=== PATIENT | male | born 1970 | race Hispanic/Latino ===

== ENCOUNTER 2017-05-18 20:21 | Inpatient (IN) | payer OTHER ==
[~2017-05-18] VITALS: Ht 175.3 cm; Wt 103.5 kg
[~2017-05-18 20:21] MED LIST: PHENDIMETRAZIN105 MG PO
[2017-05-18] MEDS ORDERED: LIDOCAINE VISC 2% SOLN 15 ML UDC PO ONE (21:00)
[2017-05-18] MEDS ORDERED: MAGNESIUM/ALUMINUM/SIMETHICONE 30 ML UDC PO ONE (21:00)
[2017-05-18] MEDS ORDERED: BELLADONNA ALK/PHENOBARBITAL 5 ML UDC PO ONE (21:00)
[2017-05-18 21:27] LABS: BASOPHILS # (AUTO) 0.1 (0.0-0.1); BASOPHILS % 0.5 % (0.0-1.0); EOSINOPHILS # (AUTO) 0.1 (0.0-0.4); EOSINOPHILS % 0.5 % (0.0-6.0); HEMOGLOBIN 17.7 g/dL (14.0-18.0); LYMPHOCYTES # (AUTO) 2.2 (1.0-3.2); MEAN CORPUSCULAR HEMOGLOBIN 29.7 pg (28-32); MEAN CORPUSCULAR HGB CONC 33.4 g/dL (31-35); MEAN CORPUSCULAR VOLUME 88.9 fL (81-99); NEUTROPHILS # (AUTO) 8.7 (2.1-6.9); NEUTROPHILS % 72.7 % (38.7-80.0); PLATELET COUNT 390 x10e3/uL (140-360); RED BLOOD COUNT 5.96 x10e6/uL (4.3-5.7); RED CELL DISTRIBUTION WIDTH 14.4 % (11.7-14.4)
[2017-05-18 21:43] LABS: ALBUMIN 4.3 g/dL (3.5-5.0); ALBUMIN/GLOBULIN RATIO 1.2 (0.8-2.0); CALCIUM 10.7 mg/dL (8.4-10.2); CREATININE, SERUM 1.44 mg/dL (0.72-1.25)
[2017-05-18 21:49] LABS: TROPONIN I 0.026 ng/mL (0-0.300)
[2017-05-18] MEDS ORDERED: ASPIRIN 81 MG CHEW TAB PO STA (22:03)
[2017-05-18] MEDS ORDERED: ENOXAPARIN SODIUM INJ 100 MG/ML SYR SC STA (22:03)
--- NOTE | 2017-05-18 22:36 | Diagnostic Imaging Report ---
CHEST SINGLE (PORTABLE), 05/18/2017 8:49 PM Technique: CHEST SINGLE (PORTABLE) Comparison: None available. Clinical history: Heartburn, except Findings: See Impression Impression: Limited by portable technique and motion artifact. If there is ongoing clinical concern, recommend repeat or upright PA and lateral. 1. Cardiomediastinal silhouette grossly normal for technique 2. No consolidation, pleural effusion or pneumothorax. Signed by: Dr Lara Orellana MD on 05/18/2017 10:33 PM
[2017-05-18] MEDS ORDERED: PANTOPRAZOLE 40 MG 10ML VIAL IV STA (22:41)
[2017-05-18] MEDS ORDERED: SODIUM CHLORIDE FLUSH 10 ML SYR INJ PRN (22:45)
[2017-05-18] MEDS ORDERED: HYDRALAZINE HCL 20 MG/ML VIAL IV PRN (22:45)
[2017-05-18] MEDS ORDERED: ONDANSETRON HCL INJ 2 MG/ML VIAL IV PRN (22:45)
[2017-05-19] VITALS (8 sets, daily range): BP systolic 119–147; BP diastolic 72–97
[2017-05-19] MEDS: SODIUM CHLORIDE 0.9% 1000ML 1,000 ML IV SCH ×4 (00:24→21:58)
[2017-05-19 06:34] LABS: CHOL/HDL RATIO 7.6 (3.9-4.7)
[2017-05-19 06:46] LABS: CREATINE KINASE MB 4.7 ng/mL (0.00-5.00); TROPONIN I 0.009 ng/mL (0-0.300)
[2017-05-19 08:56] LABS: ANION GAP 13.9 mmol/L (8-16); CALCIUM 8.7 mg/dL (8.4-10.2); CREATININE, SERUM 1.41 mg/dL (0.72-1.25); POTASSIUM 3.9 mmol/L (3.5-5.1)
[2017-05-19] MEDS: METOPROLOL TARTRATE 25 MG TAB PO SCH ×2 (09:40→17:42)
[2017-05-19] MEDS: PANTOPRAZOLE 40 MG 10ML VIAL IV SCH (10:26)
[2017-05-19] MEDS: ASPIRIN 81 MG ENTERIC COATED PO SCH (10:26)
--- NOTE | 2017-05-19 14:32 | History and Physical ---
CHIEF COMPLAINT 1. Chest pain. 2. Epigastric pain. 3. Not feeling good. HPI: This is a 47-year-old male with a past medical history of hypertension, hyperlipidemia recently started on Norvasc. He started to develop some epigastric pain, nausea, atypical chest pain. Patient came to the emergency room. No cough. No shortness of breath. No fever. No abdominal pain. Has some epigastric pain, but no nausea or vomiting. No diarrhea. ALLERGIES: NO KNOWN DRUG ALLERGIES. PAST MEDICAL HISTORY 1. Hypertension. 2. Hyperlipidemia. PAST SURGICAL HISTORY: Not available. HABITS: Denies smoking. Denies alcohol use. SOCIAL HISTORY: Patient is . MEDICATIONS: Norvasc 5 mg daily. REVIEW OF SYSTEMS GENERAL: Weakness. HEENT: No . No blurry vision. CARDIAC: Has some chest pain. No shortness of breath. No cough. ALIMENTARY: Has some nausea, abdominal pain. No fever. No diarrhea. GENITOURINARY: No dysuria or hematuria. MUSCULOSKELETAL: No joint pain. NEUROLOGICAL: No focal weakness. PHYSICAL EXAMINATION GENERAL: This is a 47-year-old male who is alert, and does not seem in acute distress. VITALS: Temperature 98, pulse 76, respiratory rate 18, blood pressure 147/87. HEENT: Within normal limits. LUNGS: Clear to auscultation bilaterally. Good breath sounds. HEART: S1 and S2. Regular rate and rhythm. No gallops or murmurs. ABDOMEN: Soft and nontender. Has some epigastric tenderness, but otherwise no other tenderness. No guarding or rigidity. EXTREMITIES: No edema. Peripheral pulses normal. 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 EKG nonspecific ST-T changes. Chest x-ray limited study and normal. White count 11.97, hemoglobin and hematocrit 17.7 and 43, and platelets 390,000. Sodium 142, potassium 4, BUN 17, creatinine 1.41. CK 12.92, troponin normal. ASSESSMENT 1. Atypical chest pain: Rule out angina. Rule out myocardial infarction. 2. Hyperlipidemia. 3. Hypertension. 4. Rhabdomyolysis. 5. Gastritis. PLAN: Change Norvasc to metoprolol. IV normal saline at 130 mL per hour. Cardiac consult with Dr. Chen. Metoprolol 12.5 mg p.o. b.i.d. Echocardiogram. Further care as per cardiology recommendations. Job#: [id number] RI
[2017-05-19 15:10] LABS: CREATINE KINASE MB 3.3 ng/mL (0.00-5.00); TROPONIN I 0.012 ng/mL (0-0.300)
--- NOTE | 2017-05-19 15:23 | Consultation ---
DATE OF CONSULTATION: May 19, 2017 CARDIOLOGY CONSULTATION REASON FOR CONSULTATION: Chest pain. HISTORY OF PRESENT ILLNESS: This is a 47-year-old man with a history of hypertension, who presents with complaints of heartburn. He reports he had nosebleed on Wednesday for which went to the ER. He was found to have an abnormal EKG, which he is uncertain and he has had before in the past. He then saw his primary care physician who put him on amlodipine. After he took amlodipine, he developed heartburn and hiccups, and he developed chest pain, which he described as heartburn sensation. He therefore presented to the ER for further evaluation. He denies any edema, orthopnea, PND, palpitations, lightheadedness, or syncope. He reports he had a normal stress test about 1-1/2 years ago. However, he does not recall being told he had an abnormal EKG at that time. REVIEW OF SYSTEMS: Negative except as per HPI. PAST MEDICAL HISTORY: Hypertension, hyperlipidemia. PAST SURGICAL HISTORY: Nose surgery, hand surgery times 2. ALLERGIES: NO KNOWN DRUG ALLERGIES. MEDICATIONS: Please see medication list. SOCIAL HISTORY: He smokes tobacco occasionally. He drinks alcohol socially. No illicit drugs. FAMILY HISTORY: Denies. PHYSICAL EXAMINATION VITALS: Temperature 98 degrees, pulse 76, respiratory rate 18, blood pressure 147/87, and oxygen saturation 98% on room air. GENERAL: Obese gentleman in no acute distress. HEENT: Normocephalic and atraumatic. Pupils equal. No scleral icterus. NECK: Supple. No thyromegaly or cervical lymphadenopathy. No carotid bruits. LUNGS: Clear to auscultation bilaterally. No wheezes or crackles. CARDIOVASCULAR: Normal rate and regular rhythm. No murmur. Normal S1 and S2. ABDOMEN: Soft and nontender. EXTREMITIES: No edema. NEURO: Nonfocal exam. LABS: WBC 11.97, hemoglobin 17.7, hematocrit 53, and platelets 390,000. Sodium 142, potassium 3.9, chloride 106, CO2 26, BUN 17, creatinine 1.41. Troponin 0.009. EKG is sinus rhythm, right bundle branch block. Chest x-ray with cardiomediastinal silhouette grossly normal for technique. No consolidation, pleural effusion or pneumothorax. IMPRESSION 1. Chest pain. 2. Hypertension. 3. Hyperlipidemia. 4. Acute kidney injury versus chronic kidney disease. 5. Rhabdomyolysis. RECOMMENDATIONS: Trend cardiac enzymes. No evidence of myocardial infarction on serial cardiac biomarkers thus far. Given abnormal EKG and risk factors, we will proceed with treadmill nuclear stress test for further evaluation. Echocardiogram to evaluate for structural heart disease. Continue current cardiac medications. Further recommendations pending test results. Thank you for this consult. We will continue to follow. Job#: [id number] SHAYLEE
--- NOTE | 2017-05-19 21:01 | Cardiology Report ---
DATE OF STUDY: May 19, 2017 PROCEDURE TITLE Rest stress single isotope SPECT imaging with exercise stress and gated SPECT imaging. INDICATIONS: Abnormal EKG and chest pain. PROCEDURE: The patient performed treadmill exercise using a Fernando protocol, exercising for 8 minutes 6 seconds to stage 3 and completing estimated work load of 10.1 metabolic equivalents (METS). The test was terminated due to fatigue. The heart rate was 90 beats per minute at baseline and increased to 132 beats per minute at peak exercise, which was 77% of maximum predicted heart rate. The rest blood pressure was 73/59 and increased to 154/76 mmHg, which is a normal response. The patient did not develop any symptoms other than fatigue during the procedure. The resting electrocardiogram showed normal sinus rhythm with right bundle branch block. There were no ST segment changes consistent with myocardial ischemia. Myocardial perfusion imaging was performed at rest following the injection of 10.9 mCi of tetrofosmin. At peak exercise the patient was injected with 33 mCi of tetrofosmin and exercise was continued for 1 minute. Gated post tomographic imaging was performed. FINDINGS: The overall quality of the study is fair. Attenuation artifact is present. There is a medium-sized mild perfusion defect in the inferior wall on stress imaging. Images revealed homogenous tracer distribution at rest. Gated SPECT imaging reveals normal myocardial thickening and wall motion. Left ventricular ejection fraction was calculated to be greater than 70%. IMPRESSION: Normal clinical, hemodynamic, and ECG exercise stress test. Myocardial perfusion imaging is abnormal. There is a moderate area of ischemia in the inferior wall. Overall, left ventricular systolic function was normal without regional wall motion abnormalities. Job#: [id number] cc: DARLINE NAIR MD MTDD
[2017-05-19] MEDS ORDERED: MAGNESIUM/ALUMINUM/SIMETHICONE 30 ML UDC PO PRN (22:30)
[2017-05-20] VITALS (8 sets, daily range): BP systolic 128–151; BP diastolic 62–92
[2017-05-20] MEDS: SODIUM CHLORIDE 0.9% 1000ML 1,000 ML IV SCH ×2 (03:51→20:36)
[2017-05-20] MEDS: METOPROLOL TARTRATE 25 MG TAB PO SCH ×2 (08:00→17:26)
[2017-05-20] MEDS: ASPIRIN 81 MG ENTERIC COATED PO SCH (08:26)
[2017-05-20] MEDS: PANTOPRAZOLE 40 MG 10ML VIAL IV SCH (08:26)
[2017-05-20] MEDS ORDERED: VERAPAMIL HCL 2.5 MG/ML 2 ML VIAL ONE (12:14)
[2017-05-20] MEDS ORDERED: LIDOCAINE HCL 2% LOCAL 20 ML VIAL ONE (12:14)
[2017-05-20] MEDS ORDERED: IOPAMIDOL 370 MG/ML 200 ML INFUS..BTL INJ ONE (12:15)
[2017-05-20] MEDS ORDERED: HEPARIN SOD/SOD CHLORIDE 2,000 ML ONE (12:15)
[2017-05-20] MEDS ORDERED: NITROGLYCERIN/D5W 200 MCG/ML 250 ML ONE (12:17)
[2017-05-20] MEDS ORDERED: SODIUM CHLORIDE 0.9% 1000ML 1,000 ML ONE (12:17)
[2017-05-20] MEDS ORDERED: FENTANYL CITRATE/PF 100MCG/2 ML INJ ONE (12:58)
[2017-05-20] MEDS ORDERED: MIDAZOLAM HCL 2 MG/2 ML VIAL ONE (12:59)
[2017-05-20 13:37] LABS: BASOPHILS % 0.5 % (0.0-1.0); EOSINOPHILS # (AUTO) 0.2 (0.0-0.4); EOSINOPHILS % 1.9 % (0.0-6.0); LYMPHOCYTES # (AUTO) 1.9 (1.0-3.2); MEAN CORPUSCULAR HEMOGLOBIN 29.8 pg (28-32); MEAN CORPUSCULAR HGB CONC 32.7 g/dL (31-35); MEAN CORPUSCULAR VOLUME 91.2 fL (81-99); MONOCYTES # (AUTO) 0.6 (0.2-0.8); NEUTROPHILS # (AUTO) 5.6 (2.1-6.9); NEUTROPHILS % 67.2 % (38.7-80.0); PLATELET COUNT 325 x10e3/uL (140-360); RED BLOOD COUNT 5.37 x10e6/uL (4.3-5.7); RED CELL DISTRIBUTION WIDTH 14.1 % (11.7-14.4)
[2017-05-20 13:51] LABS: ALBUMIN 3.3 g/dL (3.5-5.0); ALBUMIN/GLOBULIN RATIO 1.1 (0.8-2.0); ANION GAP 11.2 mmol/L (8-16); CALCIUM 8.2 mg/dL (8.4-10.2); CREATININE, SERUM 1.42 mg/dL (0.72-1.25); POTASSIUM 4.2 mmol/L (3.5-5.1)
--- NOTE | 2017-05-20 14:52 | Progress Note ---
DATE: May 20, 2017 CARDIOLOGY PROGRESS NOTE SUBJECTIVE: The patient denies chest pain or shortness of breath. He underwent coronary angiogram today due to an abnormal nuclear stress test that showed evidence of mild coronary artery disease. OBJECTIVE VITAL SIGNS: Temperature 97.1 degrees, pulse 74, respiratory rate 17, blood pressure 151/92, oxygen saturation 98% on room air. GENERAL: Awake, alert, in no acute distress. LUNGS: Clear to auscultation bilaterally. No wheezes or crackles. CARDIOVASCULAR: Normal rate, regular rhythm. No murmur. Normal S1 and S2. ABDOMEN: Soft, nontender. EXTREMITIES: No edema. CARDIAC MEDICATIONS 1. Aspirin 81 mg p.o. daily. 2. Metoprolol tartrate 12.5 mg p.o. b.i.d. LABS: WBC 8.3, hemoglobin 16, hematocrit 49, platelets 325. Sodium 138, potassium 4.2, chloride 104, CO2 27, BUN 10, creatinine 1.42. TELEMETRY: Normal sinus rhythm. IMPRESSION 1. Chest pain, abnormal nuclear stress test. 2. Hypertension. 3. Hyperlipidemia. 4. Acute kidney injury versus chronic kidney disease. 5. Rhabdomyolysis, improving. RECOMMENDATIONS: CK is improving. There is no evidence of myocardial infarction on serial cardiac biomarkers. Given his abnormal nuclear stress test, we proceeded with coronary angiogram today which revealed only mild coronary artery disease. Discussed lifestyle modification, a heart-healthy diet, weight loss and exercise with the patient. Patient may be discharged home after his bed rest is complete. Thank you for this consult. We will continue to follow. Job#: [id number] EV
--- NOTE | 2017-05-20 21:03 | Consultation ---
DATE OF CONSULTATION: May 20, 2017 HISTORY OF PRESENT ILLNESS: This is a 47-year-old who has a history of supposedly acid reflux and history of ulcer disease in the past, history of hypertension and hyperlipidemia, presented to the hospital because of problems of abdominal pain as well as pain in the left upper quadrant area along with some chest tightness and heartburn. Patient has some nausea, but denies any vomiting. His cardiac workup is unremarkable and his workup also showed that his liver enzymes slightly elevated of 66 and 64 on admission. It is back to 39 and 54. He said that he had an upper and lower endoscopy about a couple of years or so ago, which showed ulcers supposedly both in the stomach and in the esophagus. He denies any bleeding along with this problem. OTHER MEDICAL PROBLEMS: Significant for history of hypertension, also history of hyperlipidemia. ALLERGIES: NONE. MEDICATIONS AT HOME: Include Norvasc. SOCIAL HISTORY: No smoking or alcohol use. FAMILY HISTORY: Noncontributory. REVIEW OF SYSTEMS: Denies any chest pain or shortness of breath at this point. Denies any dysphagia or odynophagia. Denies any dysuria or hematuria, numbness or tingling of the extremities, or any kind of syncopal episode. PHYSICAL EXAMINATION GENERAL: Patient is awake, alert, appeared to be stable, and not in any acute distress at this point. VITAL SIGNS: Afebrile currently. HEAD, EYES, EARS, NOSE, THROAT: Normocephalic, atraumatic. Sclerae are anicteric. NECK: Supple. HEART: Regular. ABDOMEN: Soft. There is no distention at this point. It is nontender. EXTREMITIES: No clubbing. LAB VALUES: As of today, the AST 39, ALT of 54 and CBC was okay. IMPRESSION 1. Noncardiac chest pain, rule out angina. 2. Abdominal pain, nausea. He has history of ulcer supposedly and reflux. 3. Liver function test appears to be getting better. RECOMMENDATIONS: Continue on current care at this point. Patient will need to have an esophagogastroduodenoscopy as an outpatient. Follow up with me in the office in about 2 to 3 weeks. Job#: [id number] GE cc:TI NAIR MD
[2017-05-21] VITALS: BP 134/73
[2017-05-21] MEDS: SODIUM CHLORIDE 0.9% 1000ML 1,000 ML IV SCH (04:20)
[2017-05-21 05:00] VITALS: BP 144/91
[2017-05-21 07:09] LABS: ANION GAP 10.3 mmol/L (8-16); BLOOD UREA NITROGEN 10 mg/dL (7-26); BUN/CREATININE RATIO 8 (6-25); CALCIUM 8.3 mg/dL (8.4-10.2); CARBON DIOXIDE 29 mmol/L (22-29); CHLORIDE 106 mmol/L (98-107); CREATININE, SERUM 1.25 mg/dL (0.72-1.25); EST GLOMERULAR FILTRATION RATE > 60 ML/MIN (60-); GLUCOSE 89 mg/dL (74-118); POTASSIUM 4.3 mmol/L (3.5-5.1); SODIUM 141 mmol/L (136-145)
[2017-05-21 08:07] VITALS: BP 154/94
[2017-05-21 08:18] VITALS: BP 154/94
[2017-05-21] MEDS ORDERED: TRAMADOL HCL 50 MG TAB PO PRN (08:30)
[2017-05-21] MEDS: PANTOPRAZOLE 40 MG 10ML VIAL IV SCH (08:35)
[2017-05-21] MEDS: ASPIRIN 81 MG ENTERIC COATED PO SCH (08:39)
--- NOTE | 2017-05-21 09:16 | Operative Report ---
DATE OF PROCEDURE: May 20, 2017 INDICATIONS: Coronary artery disease, unstable angina with abnormal stress test. PROCEDURES PERFORMED 1. Left heart catheterization. 2. Selective coronary angiography. 3. Deployment of right groin Perclose. COMPLICATIONS: None. RECOMMENDATIONS: Medical therapy. Access was obtained in the right femoral artery. A 6-Omani sheath was placed. Diagnostic coronary angiography demonstrated patent left main. Left anterior descending, circumflex and right coronary artery had mild 20% to 30% stenosis. No critical occlusions were noted. Excellent flow in all vessels. No intervention was deemed necessary. Right groin repaired using Perclose. Patient was observed in the hospital for hydration for rhabdomyolysis. Job#: [id number] SHAYLEE
--- NOTE | 2017-05-21 09:30 | Diagnostic Imaging Report ---
PROCEDURE:X-RAY RIGHT ELBOW, COMPLETE COMPARISON:None. INDICATIONS:ELBOW PAIN FINDINGS: There are no fractures, dislocations, lytic or blastic lesions. The bones are well-mineralized. The soft-tissues are unremarkable. CONCLUSION: No acute radiographic abnormality. Dictated by: Leonidas Snow M.D. on 05/21/2017 at 9:39 Electronically approved by: Leonidas Snow M.D. on 05/21/2017 at 9:39
[2017-05-21] MEDS ORDERED: METOPROLOL TARTRATE 25 MG TAB PO SCH (17:00)
== END 2017-05-21 10:55 | disposition home or self-care (01) | DRG 287 ==
LOC: ER 20:21 → IMCU 23:59 → OBSVTOIN 05-20 15:48
PROVIDERS: ADMIT Internal Medicine; ATTEND Internal Medicine
PROC: 4A023N7 Measurement of Cardiac Sampling and Pressure, Left Heart, Percutaneous Approach (ICD-10-PCS; principal; 2017-05-20)
PROC: B2111ZZ Fluoroscopy of Multiple Coronary Arteries using Low Osmolar Contrast (ICD-10-PCS; principal; 2017-05-20)
DX: I25.110 Atherosclerotic heart disease of native coronary artery with unstable angina pectoris (principal); N17.9 Acute kidney failure, unspecified; M62.82 Rhabdomyolysis; E78.5 Hyperlipidemia, unspecified; K21.9 Gastro-esophageal reflux disease without esophagitis; K29.70 Gastritis, unspecified, without bleeding; G47.33 Obstructive sleep apnea (adult) (pediatric); Z72.0 Tobacco use; E66.9 Obesity, unspecified; Z68.33 Body mass index [BMI] 33.0-33.9, adult
CPT/HCPCS: 36140; 36415; 71010; 77002; 78452; 80048; 80053; 80061; 82150; 82550; 82553; 83690; 84484; 85025; 93017; 93306; 93458; 93971; 99284; A9502; C1769; G0378; J1650; J2001; J2250; J7030; Q9967

== ENCOUNTER 2017-07-25 08:10 | Emergency (ER) | payer OTHER ==
[~2017-07-25] VITALS: Ht 175.3 cm; Wt 102.1 kg
--- OUTSIDE RECORDS SUMMARY | 2017-07-25 08:14 | XMS REPORT ---
Author [facility] Address Unknown Phone Unavailable Care Team Providers Care Diet Consultant Name Role Phone TI NAIR Unavailable Unavailable Problems This patient has no known problems. Allergies, Adverse Reactions, Alerts This patient has no known allergies or adverse reactions. Medications This patient has no known medications. Results Test Description Test Time Test Comments Text Results Atomic Results Result Comments ELBOW RIGHT COMPLETE [place] [address] Patient Name: LAMBERTO WILKINS JR MR #: [id number] : 1970 Age/Sex: 47/M Req #: [id number] [facility] Physician: TI NAIR MD Ordered by : TI NAIR MD Report #: [id number] Location: [facility] Room/Bed: [place] [address] Procedure: [id number] DX/ELBOW RIGHT COMPLETE Exam Date: Exam Time: REPORT STATUS: Signed PROCEDURE: X-RAY RIGHT ELBOW, COMPLETE COMPARISON: None. INDICATIONS: ELBOW PAIN FINDINGS: There are no fractures, dislocations, lytic or blastic lesions. The bones are well-mineralized. The soft-tissues are unremarkable. CONCLUSION: No acute radiographic abnormality. Dictated by: Pavithra Elias M.D. on 05/21/2017 at 9:39 Electronically approved by: Pavithra Elias M.D. on 05/21/2017 at 9:39 Dictated By: PAVITHRA ELIAS MD 8 COPY TO: TI NAIR MD Stress Test - Treadmill ONLY [facility] [address] [place] [address] Patient Name : LAMBERTO WILKINS JR MR #: [id number] : 1970 Age/Sex : 47/M Adm Physician : TI NAIR MD Admit Date : 05/20/17 Location : [facility] Room/Bed : [place] [address] REPORT: Cardiology Report DATE OF STUDY: May 19, 2017 PROCEDURE TITLE Rest stress single isotope SPECT imaging with exercise stress and gated SPECT imaging. INDICATIONS: Abnormal EKG and chest pain. PROCEDURE: The patient performed treadmill exercise using a Fernando protocol, exercising for 8 minutes 6 seconds to stage 3 and completing estimated work load of 10.1 metabolic equivalents (METS). The test was terminated due to fatigue. The heart rate was 90 beats per minute at baseline and increased to 132 beats per minute at peak exercise, which was 77% of maximum predicted heart rate. The rest blood pressure was 73 /59 and increased to 154/76 mmHg, which is a normal response. The patient did not develop any symptoms other than fatigue during the procedure. The resting electrocardiogram showed normal sinus rhythm with right bundle branch block. There were no ST segment changes consistent with myocardial ischemia. Myocardial perfusion imaging was performed at rest following the injection of 10.9 mCi of tetrofosmin. At peak exercise the patient was injected with 33 mCi of tetrofosmin and exercise was continued for 1 minute. Gated post tomographic imaging was performed. FINDINGS: The overall quality of the study is fair. Attenuation artifact is present. There is a medium-sized mild perfusion defect in the inferior wall on stress imaging. Images revealed homogenous tracer distribution at rest. Gated SPECT imaging reveals normal myocardial thickening and wall motion. Left ventricular ejection fraction was calculated to be greater than 70%. IMPRESSION: Normal clinical, hemodynamic, and ECG exercise stress test. Myocardial perfusion imaging is abnormal. There is a moderate area of ischemia in the inferior wall. Overall, left ventricular systolic function was normal without regional wall motion abnormalities. DT: 05/19 20:38 Job#: [id number] cc: DARLINE NAIR MD Signature Date Dictated By: EVERARDO GONSALEZ MD Transcribed By: SMEDS on 05/19/17 <Electronically signed by EVERARDO GONSALEZ MD><<Signature on File>>05/27/17 1710 COPY TO: CHEST SINGLE (PORTABLE) [place] [address] Patient Name: LAMBERTO WILKINS JR MR #: [id number] : 1970 Age/Sex: 47/M Req #: [id number] Adm Physician: Ordered by: JAYLAN BROWN MAST MAKER Report #: [id number] Location: ER Room/Bed: Procedure: [id number] DX/CHEST SINGLE (PORTABLE) Exam Date: 05/18/17 Exam Time: 2129 REPORT STATUS: Signed CHEST SINGLE ( PORTABLE), 05/18/2017 8:49 PM Technique: CHEST SINGLE (PORTABLE) Comparison: None available. Clinical history: Heartburn, except Findings : See Impression Impression: Limited by portable technique and motion artifact. If there is ongoing clinical concern, recommend repeat or upright PA and lateral. 1. Cardiomediastinal silhouette grossly normal for technique 2. No consolidation, pleural effusion or pneumothorax. Signed by: Dr Sandra Orellana MD on 05/18/2017 10:33 PM Dictated By: SANDRA ORELLANA MD 32 Transcribed By: TORI on 05/18/172232 COPY TO: JAYLAN BROWN NP
[2017-07-25] MEDS ORDERED: SILVER SULFADIAZINE 50GM CREAM TOP STA (08:54)
[2017-07-25] MEDS ORDERED: HYDROCODONE/APAP 10MG-325MG TAB PO ONE (09:00)
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
[2017-07-25 09:49] VITALS: BP 160/109
== END 2017-07-25 09:55 | disposition home or self-care (01) ==
LOC: ER 08:49
DX: S50.811A Abrasion of right forearm, initial encounter (principal); S30.0XXA Contusion of lower back and pelvis, initial encounter; V22.4XXA Motorcycle driver injured in collision with two- or three-wheeled motor vehicle in traffic accident, initial encounter; Y92.488 Other paved roadways as the place of occurrence of the external cause; I10 Essential (primary) hypertension
CPT/HCPCS: 72170; 99283

== ENCOUNTER 2019-07-16 11:28 | Emergency (ER) | payer OTHER ==
[~2019-07-16] VITALS: Ht 175.3 cm; Wt 102.1 kg
--- OUTSIDE RECORDS SUMMARY | 2019-07-16 11:30 | XMS REPORT | Summary of Care ---
Author Author [facility] Organization [facility] Address Unknown Phone Unavailable Care Team Providers Care Clerical Order Filler Name Role Phone PCP Unavailable Reason for Visit * Reason Comments Hypogonadism Encounter Details Care Team Description Date Type Department Lewis Craft MD [address] [facility] [address] [place] [address] Hypogonadism 03/03/2019 Office Visit [facility] Urology [address] [facility], [facility] [address] [place] [address] Allergies No Known Allergiesdocumented as of this encounter (statuses as of 03/03/2019) Medications End Date Status Medication Sig Dispensed Refills Start Date Active Cetirizine HCl (ZYRTEC Take by 0 OR) mouth. Active tadalafil (CIALIS) 20 MG Take 1 Tab by 6 Tab 5 tablet mouth as 8 needed for Erectile Dysfunction. Active testosterone enanthate INJECT 1 ML 15 mL 0 (DELATESTRYL) 200 MG/ML INTRAMUSCULAR 8 injection LY EVERY 7 DAYS Active finasteride (PROPECIA) 1 Take 1 Tab by 90 Tab 1 MG tablet mouth daily. 9 Active ketoconazole (NIZORAL) 2 Apply small 3 Bottle 2 % shampoo amount 9 topically daily as needed Active finasteride (PROSCAR) 5 TAKE 1/4 OF A 30 Tab 1 MG tablet TABLET BY 9 MOUTH ONCE A DAY Active DEXILANT 60 MG CPDR TAKE 1 3 CAPSULE BY 9 MOUTH EVERY DAY Active CHORIONIC GONADOTROPIN IM Inject into 0 the muscle. Active Metoprolol-hydroCHLOROthi Take by 0 azide (METOPROLOL-HCTZ ER mouth. OR) Active finasteride (PROSCAR) 5 TAKE 1/4 OF A 30 Tab 2 201 MG tablet TABLET BY 9 MOUTH ONCE A DAY Active anastrozole (ARIMIDEX) 1 TAKE 1 TABLET 24 Tab 2 201 MG tablet BY MOUTH 9 EVERY 7 DAYS 03/03/2019 Discontinued anastrozole (ARIMIDEX) 1 TAKE 1 TABLET 12 Tab 0 08/17/201 MG tablet BY MOUTH 9 EVERY 7 DAYS documented as of this encounter (statuses as of 03/03/2019) Active Problems Problem Noted Date CHF (congestive heart failure) (HCCode) Gout HTN (hypertension) Hypogonadism in male documented as of this encounter (statuses as of 03/03/2019) Social History Date Tobacco Use Types Packs/Day Years Used Never Smoker Smokeless Tobacco: Never Used Drinks/Week oz/Week Comments Alcohol Use No Sex Assigned at Date Recorded Not on file Industry Job Start Date Occupation Not on file Not on file Not on file Travel End Travel History Travel Start No recent travel history available. documented as of this encounter Last Filed Vital Signs Reading Time Taken Comments Vital Sign 150/84 03/03/2019 9:52 AM PRESS READER Blood Pressure 81 03/03/2019 9:52 AM PR[employer] READER Pulse - - Temperature - - Respiratory Rate - - Oxygen Saturation - - Inhaled Oxygen Concentration 104.3 kg (230 lb) 03/03/2019 9:52 AM PRESS READER Weight 175.3 cm (5' 9") 03/03/2019 9:52 AM PRESS READER Height 33.97 03/03/2019 9:52 AM PRESS READER Body Mass Index documented in this encounter Progress Notes * Lewis Craft MD - 03/03/2019 9:20 AM PRESS READER I saw and evaluated the patient and agree with the resident's/fellow's findings as written. 49 y.o. male patient complains of moderate symptoms consistent with hypogonad ism on TTH since 10/2016. 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 Pt denies gynecomastia, nipple sensitivity, mild acne, hair loss, joint pain, te sticular atrophy. H/o nephrolithiasis -No stone episodes since his last appointment -does not seem to be recurrent issue Denies LUTS, ED. No hx of sock lining examiner in family. 09/24/18 labs: T chol 177, HDL 31, LDL 131 Hct 47.2 OGF1 126 Prolactin 11.7 Estradiol 51 (nl <39) PSA 1.9 Total T 1090 Free T 243.1 M-HypoG S READER * Marty Luke MD - 03/03/2019 9:20 AM PRESS READER Last seen 07/2018 Hypogonadism: -TE 1 cc IM QW -HCG 1500 IU SQ QW -Deca 0.5 cc IM QW - Finasteride 1mg daily prescribed to pharmacy -Still needs a second sleep study to confirm dx of CHERELLE H/o nephrolithiasis -No stone episodes since his last appointment Gets labs from [facility] Chief Complaint Patient presents with Hypogonadism HPI: 49 y.o. male patient complains of moderate symptoms consistent with hypogo nadism on TTH since 10/2016. 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 Pt denies gynecomastia, nipple sensitivity, mild acne, hair loss, joint pain, te sticular atrophy. H/o nephrolithiasis -No stone episodes since his last appointment -does not seem to be recurrent issue Denies LUTS, ED. No hx of sock lining examiner in family. 09/24/18 labs: T chol 177, HDL 31, LDL 131 Hct 47.2 OGF1 126 Prolactin 11.7 Estradiol 51 (nl <39) PSA 1.9 Total T 1090 Free T 243.1 Prostate cancer screening Lab Results Component Value Date PSA 1.748 07/23/2017 PSA 2.008 03/03/2017 PSA 1.432 11/04/2016 PSA 0.30 (08/11/2018) - with 7 children, not interested in preserving fertility. - History of uric acid stones 6 years ago- passed a few stones then. None since. No issues with. - - no history of gynecomastia and/or concerns about the condition. - no Family History of Prostate Cancer. No past medical history on file. No past surgical history on file. Medications: No current outpatient prescriptions on file. No outpatient prescriptions prior to visit. No facility-administered medications prior to visit. Social History Marital Status: Single Spouse Name: Years of Education: Number of children: Social History Main Topics Social History Occupational History Not on file. family history is not on file. Allergies not on file Review of Systems: GENERAL: Denies recent weight changes, fever, weakness, fatigue, headaches INTEGUMENTARY: Denies rashes, eruptions, dryness, jaundice, changes in skin, hair, or nails, di scoloration of skin. EYES: Denies blurred vision, double vision, pain EARS, NOSE, MOUTH AND THROAT: Denies soreness and/or redness of gums, hoarseness, difficulty in swallowing, he ad colds, discharges, obstruction, postnasal drip, sinus pain, earaches. MUSCULOSKELATAL: Denies joint pain, neck pain, back pain RESPIRATORY: Denies chest pain, wheezing, cough, difficulty breathing, asthma, bronchitis, pn eumonia, tuberculosis, shortness of breath, emphysema NEUROLOGIC: Denies fainting, blackouts, seizures, paralysis, tingling, tremors, memory loss, dizzy spells, stroke CARDIOVASCULAR: Denies chest pain, rheumatic fever, rapid heart beat, high blood pressure, swell ing, dizziness, faintness, varicose veins, heart valve problems. ENDOCRINE: Denies thyroid trouble, fatigue, heat and cold intolerance, excessive sweating, thirst, hunger GASTROINTESTINAL: Denies nausea, vomiting, diarrhea, constipation, indigestion, food intolerance, hemorrhoids, jaundice, heartburn, diabetes, hepatitis GENITOURINARY: As per HPI HEMATOLOGIC/LYMPHATIC: Denies anemia, easy bruising or bleeding, past transfusion, swollen glands, bloo d clotting problems PSYCHOLOGIC: Denies nervousness, mood swings, insomnia, headaches, nightmares, depression ALLERGY/IMMUNOLOGIC: Denies food allergies, plant allergies, environmental allergies OTHER: Denies HIV/AIDS Physical Exam: There were no vitals filed for this visit. GENERAL: Well developed, well nourished, in no acute distress HEAD: Normocephalic and atraumatic CHEST Regular respiratory rate CV Regular rate and rhythm ABDOMEN: Abdomen soft and non-tender without masses, BACK: No CVAT EXTREMITIES: No clubbing, cyanosis, edema, or deformity SKIN: Intact without lesions or rashes NEURO: VALLADARES well. Patient alert and oriented x3. PSYCH: Alert and cooperative; normal mood and affect; normal attention span and con centration Most Recent Labs: No results found for this or any previous visit (from the past 4032 hour(s)). Most Recent Imaging: No images are attached to the encounter. No diagnosis found. Plan: Hypogonadism: -TE 1 cc IM QW -HCG 1500 IU SQ QW -Deca 0.5 cc IM QW Weight management - [facility] ED -- Tadalafil 25 -Still needs a second sleep study to confirm dx of CHERELLE H/o nephrolithiasis -No stone episodes since his last appointment Gets labs from [facility] Counseled again on BP management -- will see concrete pouring supervisor S READER documented in this encounter Plan of Treatment Care Team Description Date Type Specialty Lewis Craft MD [address] [place] [address] 09/08/2019 Office Visit Urology Order Schedule Name Type Priority Associated Diagnoses Expected: 03/17/2019 (Approximate), Expires: 04/02/2019 TESTOSTERONE-TOTAL(URO Lab Routine Hypogonadism in male DEPT) Encounter for screening for cardiovascular disorders Screening for metabolic disorder Encounter for long-term current use of medication Expected: 03/17/2019 (Approximate), Expires: 04/02/2019 ESTRADIOL(URO DEPT) Lab Routine Hypogonadism in male Encounter for screening for cardiovascular disorders Screening for metabolic disorder Encounter for long-term current use of medication Expected: 03/17/2019 (Approximate), Expires: 04/02/2019 PROLACTIN(URO DEPT) Lab Routine Hypogonadism in male Encounter for screening for cardiovascular disorders Screening for metabolic disorder Encounter for long-term current use of medication Expected: 03/17/2019 (Approximate), Expires: 04/02/2019 DHEA SULFATE(URO DEPT) Lab Routine Hypogonadism in male Encounter for screening for cardiovascular disorders Screening for metabolic disorder Encounter for long-term current use of medication Ordered: 03/03/2019 LIPID PANEL Lab Routine Hypogonadism in male Encounter for screening for cardiovascular disorders Screening for metabolic disorder Encounter for long-term current use of medication Ordered: 03/03/2019 HEMATOCRIT Lab Routine Hypogonadism in male Encounter for screening for cardiovascular disorders Screening for metabolic disorder Encounter for long-term current use of medication Ordered: 03/03/2019 INSULIN LIKE GROWTH Lab Routine Hypogonadism in male FACTOR(IGF-1) Encounter for screening for cardiovascular disorders Screening for metabolic disorder Encounter for long-term current use of medication Expected: 03/17/2019 (Approximate), Expires: 04/02/2019 SHBG(URO DEPT) Lab Routine Hypogonadism in male Encounter for screening for cardiovascular disorders Screening for metabolic disorder Encounter for long-term current use of medication Health Maintenance Due Date Last Done Comments COLON CANCER SCREENIN1968 COLONOSCOPY TETANUS SHOT (ADULT) 02/19/1983 BMI FOLLOW UP PLAN 02/19/1986 HIV SCREENING 02/19/1986 FLU VACCINE > 6 MONTHS Completed 12/25/2018 documented as of this encounter Results Not on filedocumented in this encounter Visit Diagnoses Diagnosis Hypogonadism in male - Primary Encounter for screening for cardiovascular disorders Screening for other and unspecified cardiovascular conditions Screening for metabolic disorder Encounter for long-term current use of medication documented in this encounter Insurance Type Payer Benefit Subscriber ID Effective Phone Address Plan / Dates Group [facility] [employer] OPEN xxxxxxxxxxx 2001-[address] [id number] PLUS - [place]AD [place] [id number] documented as of this encounter
[2019-07-16] MEDS ORDERED: TETRACAINE HCL 0.5% OPTH SOLN 4 ML BTL OP ONE (11:45)
[2019-07-16] MEDS ORDERED: FLUORESCEIN SOD(OPTH) 1 MG STRP OP ONE (11:45)
--- NOTE | 2019-07-16 11:45 | NUR ---
fluorecine stain performed in triage to assess for corneal abrasions.
== END 2019-07-16 12:05 | disposition home or self-care (01) ==
LOC: ER 11:28
DX: H57.12 Ocular pain, left eye (principal); H01.005 Unspecified blepharitis left lower eyelid
CPT/HCPCS: 99282

== ENCOUNTER → 2022-10-16 | Outpatient (CLI) | payer OTHER | LOC: US 07:53 | PROVIDERS: ATTEND Nurse Practitioner | DX: R10.10 Upper abdominal pain, unspecified (principal); K92.1 Melena | CPT/HCPCS: 76700; 76856 ==

== ENCOUNTER 2024-08-13 22:52 | Emergency (ER) | payer OTHER ==
[~2024-08-13] VITALS: Ht 175.3 cm; Wt 102.1 kg
[~2024-08-13 22:52] MED LIST changes: +CHERRY EXTRACT PO; +DANDELION ROOT PO; +DEXILANT60 MG PO; +FISH OIL 1,0001 EAC7 PO; +LIONS MANE PO; +MAGNESIUM OXID400 MG PO; +METOPROLOL SUCC50 MG PO; +POTASSIUM ALUM10 GM PO; +VIT B12 PO; +VITAMIN D3 COM1 EACH PO; +[UNRECOGNIZED DRUG - OTHER] PO; +[UNRECOGNIZED DRUG - OTHER] PO; +[UNRECOGNIZED DRUG - OTHER] PO
[2024-08-13] MEDS: ONDANSETRON HCL INJ 2MG/ML 2ML 2 MG/ML VIAL IV STA (23:14)
[2024-08-13] MEDS: SODIUM CHLORIDE 0.9% 1000ML 1,000 ML IV ONE (23:14)
[2024-08-13 23:28] LABS: BASOPHILS % 0.4 % (0.0-1.0); EOSINOPHILS # (AUTO) 0.2 (0.0-0.4); EOSINOPHILS % 1.7 % (0.0-6.0); HEMATOCRIT 49.6 % (38.2-49.6); HEMOGLOBIN 16.5 g/dL (14.0-18.0); LYMPHOCYTES # (AUTO) 2.3 (1.0-3.2); LYMPHOCYTES % 22.1 % (18.0-39.1); MEAN CORPUSCULAR HEMOGLOBIN 29.1 pg (28-32); MEAN CORPUSCULAR HGB CONC 33.3 g/dL (31-35); MEAN CORPUSCULAR VOLUME 87.5 fL (81-99); MONOCYTES # (AUTO) 0.6 (0.2-0.8); MONOCYTES % 5.9 % (4.4-11.3); NEUTROPHILS # (AUTO) 7.2 (2.1-6.9); NEUTROPHILS % 69.6 % (38.7-80.0); PLATELET COUNT 321 x10e3/uL (140-360); RED BLOOD COUNT 5.67 x10e6/uL (4.3-5.7); RED CELL DISTRIBUTION WIDTH 14.1 % (11.7-14.4); WHITE BLOOD COUNT 10.34 x10e3/uL (4.8-10.8)
[2024-08-13 23:47] LABS: ALBUMIN 4.7 g/dL (3.5-5.0); ALBUMIN/GLOBULIN RATIO 1.3 (0.8-2.0); ANION GAP 18.6 mmol/L (8-16); BILIRUBIN,TOTAL 1.3 mg/dL (0.2-1.2); CREATININE, SERUM 1.54 mg/dL (0.72-1.25); POTASSIUM 3.6 mmol/L (3.5-5.1); TOTAL PROTEIN 8.3 g/dL (6.5-8.1)
[2024-08-14 00:30] VITALS: PULSE 87; RESP 18; TEMP 98.7; O2SAT 94
== END 2024-08-14 00:52 | disposition home or self-care (01) ==
LOC: ER 23:05
DX: R42 Dizziness and giddiness (principal); I95.1 Orthostatic hypotension; R94.31 Abnormal electrocardiogram [ECG] [EKG]
CPT/HCPCS: 36415; 80053; 84484; 85025; 93005; 99284; J2405; J7030

== ENCOUNTER → 2024-08-14 | Day surgery (SDC) | payer OTHER ==
[~2024-08-14] MED LIST changes: +HYOSCYAMINE SULFATE 0.5 MG/ML INJ ONE; +LIDOCAINE HCL 2% LOCAL INJ 5 ML SDV VIAL INJ ONE; +METOCLOPRAMIDE HCL 10 MG/2ML VIAL ONE; +PROPOFOL IV EMULSION 10 MG/ML 20 ML VIAL ONE
[2024-08-14 15:31] VITALS: BP 118/66; PULSE 88; RESP 17; O2SAT 98
== END | disposition home or self-care (01) ==
LOC: OR 12:24
PROVIDERS: ATTEND Internal Medicine Gastroenterology
DX: K21.9 Gastro-esophageal reflux disease without esophagitis (principal); K29.70 Gastritis, unspecified, without bleeding; K26.9 Duodenal ulcer, unspecified as acute or chronic, without hemorrhage or perforation; K29.80 Duodenitis without bleeding; K22.10 Ulcer of esophagus without bleeding; K31.89 Other diseases of stomach and duodenum; K62.5 Hemorrhage of anus and rectum; K57.30 Diverticulosis of large intestine without perforation or abscess without bleeding; K64.8 Other hemorrhoids; K76.0 Fatty (change of) liver, not elsewhere classified; I10 Essential (primary) hypertension; Z71.89 Other specified counseling; I25.10 Atherosclerotic heart disease of native coronary artery without angina pectoris; I25.2 Old myocardial infarction; E66.01 Morbid (severe) obesity due to excess calories; N20.0 Calculus of kidney; Z79.899 Other long term (current) drug therapy; Z68.36 Body mass index [BMI] 36.0-36.9, adult; Z71.3 Dietary counseling and surveillance; Z86.19 Personal history of other infectious and parasitic diseases
CPT/HCPCS: 43239; 45378; J1980; J2003; J2470; J2704; J2765